=== PATIENT | male | born 1950 | race Caucasian/White ===

== ENCOUNTER 2017-07-11 21:49 | Emergency (ER) | payer MEDICARE, BC ==
--- NOTE | 2017-07-12 00:13 | ERNOTE ---
Upper Extremity HPI - General Extremities Pain Location: shoulder: left, arm: left, elbow: left Time Seen by Provider: 07/12/17 00:12 Source: patient, RN notes reviewed Exam Limitations: no limitations - Immun/Allergies/Home Medications Immunizations: IMMUNIZATION HX Immunizations Up to Date Yes History of Influenza Vaccine No Hx Pneumococcal Vaccination No Allergies/Adverse Reactions: Allergies Allergy/AdvReac Type Severity Reaction Status Date / Time Sulfa (Sulfonamide Allergy Verified 07/11/17 22:03 Antibiotics) Home Medications: HOME MEDICATIONS Cyclobenzaprine HCl [Flexeril] 10 mg PO HS PRN #15 tablet 07/12/17 [Last Taken Unknown] - History of Present Illness Narrative: Patient states that he has been having left back and shoulder pain that radiates down his left arm for the last three days. He denies any trauma. He works as a strauss, growing corn and beans, and raises cattle to sell. He works pretty hard physically. He has not had pain like this before. Occurred: last week Location of Incident: other - none Severity: moderate Method of Injury: Reports: no apparent injury Modifying Factors - (Improves): Reports: rest Modifying Factors - (Worsens): Reports: movement Associated Symptoms: Denies: tingling, weakness, numbness distally, loss of feeling, loss of power (rt arm), loss of power (lt arm) Other Injuries: Reports: none Prior Treament: Denies: recently seen Review of Systems - Review of Systems Constitutional: Absent: recent illness, fever, chills, weakness, fatigue EYE: Present: blurred vision ENT: Absent: ear pain, sore throat Respiratory: Absent: shortness of breath, cough Cardiology: Absent: chest pain, palpitations Gastrointestinal/Abdominal: Absent: nausea, vomiting, diarrhea, abdominal pain Genitourinary: Present: no symptoms reported Musculoskeletal: Present: back pain, muscle pain - left shoulder/arm to the elbow Skin: Present: no symptoms reported Neurological: Present: no symptoms reported - Patient's Past Medical History Patient History - Medical: No pertinent hx Patient History - Cardiac/Respiratory: No pertinent hx Patient History - Cancer: No Hx of Cancer Patient History - Surgical Procedures: T & A Patient History - Other: None - Social History Living Situations: spouse Abuse History: No History of abuse Psych History: No pertinent hx Smoking Status: Never smoker Have you smoked in the past 12 months: No Do you dip or chew tobacco: No Alcohol Use: none Drug Use: none - Immunizations Immunizations Up to Date: Yes Hx Pneumococcal Vaccination: No History of Influenza Vaccine: No Physical Exam - Physical Exam General Appearance: Present: wd/wn, alert, no apparent distress Head Exam: Present: normal inspection, no evidence of injury Eye Exam: Normal inspection: bilateral, PERRL: bilateral, EOMI: bilateral Ears, Nose, Throat: Present: normal ENT inspection, normal pharynx Neck: Present: normal inspection, other - tenderness to palpation to the left thoracic outlet Respiratory: Present: no respiratory distress, normal breath sounds, no accessory muscle use, lungs clear Cardiovascular/Chest: Present: regular rate, rhythm, no murmur Gastrointestinal/Abdominal: Present: normal bowel sounds, nontender, nondistended, soft Back Exam: Present: normal range of motion, no vertebral tenderness, muscle spasm - left rhomboids Extremity Exam: Present: normal inspection, non-tender, normal range of motion, no edema Neurological Exam: Present: alert, oriented, normal mood/affect, no motor/ sensory deficits Skin Exam: Present: normal color, warm/dry ED Progress - Vital Signs Patient's Vital Signs:: I have reviewed the patient's vital signs. Vital Signs: Vital Signs 07/11/17 07/11/17 07/11/17 21:57 22:34 23:39 Temperature 36.7 C Pulse Rate 93 78 70 Respiratory 16 18 16 Rate Blood Pressure 166/90 154/86 141/82 O2 Sat by Pulse 96 96 96 Oximetry - Progress/Reassessment Chief Complaint: Shoulder Injury/Pain Progress:: Improved Progress Note-Subjective: 07/12/17 05:51 I performed some tender point pressure to his rhomboids, and loosened his left first rib with repeated pressure. Patient verbalized understanding of the problem and my recommendations. Departure Clinical Impression: Left shoulder tendinitis Left shoulder pain Qualifiers: Chronicity: acute Qualified Code(s): M25.512 - Pain in left shoulder - Departure Disposition: Home self-care Condition: Good Instructions: Shoulder Pain, [id number], Cervical Sprain Additional Instructions: Please find and establish with a local DO physician or a chiropractor for further evaluation and treatment in the next 5-7 days. Please take Aleve, 2 tablets by mouth twice daily for the next 7-10 days, as needed for pain. Prescriptions: Cyclobenzaprine HCl [Flexeril] 10 mg PO HS PRN #15 tablet PRN Reason: Muscle Spasm
[2017-07-12] MEDS ORDERED: CYCLOBENZAPRINE HCL 10 MG TABLET PO ONE (00:41)
[2017-07-12] MEDS ORDERED: CYCLOBENZAPRINE HCL 10 MG TABLET ONE (00:42)
[2017-07-12 08:35] VITALS: BP 141/82
== END 2017-07-12 00:46 | disposition home or self-care (01) ==
LOC: ER 21:49
DX: M75.82 Other shoulder lesions, left shoulder (principal); M25.512 Pain in left shoulder